=== PATIENT | male | born 1980 | race African-American/Black ===

== ENCOUNTER 2021-12-17 04:03 | Emergency (ER) | payer SELFPAY ==
[2021-12-17 04:39] LABS: #Monocytes 0.8 10x3/uL (0.0-1.1); #Neutrophils 13.3 10x3/uL (1.5-8.4); %Basophils 0.3 % (0.0-2.0); %Eosinophils 0.1 % (0.0-6.0); %Lymphocytes 8.9 % (18.0-47.0); %Monocytes 5.2 % (0.0-10.0); %Neutrophils 85.1 % (40.0-75.0); Hemoglobin 13.1 g/dL (13.5-17.5); Mean Corpuscular HGB CONC 31.3 g/dL (32.0-36.0); Mean Corpuscular Hemoglobin 29.6 pg (27.0-33.0); Mean Corpuscular Volume 94.6 fl (81.2-95.1); Mean Platelet Volume 9.6 fl (7.4-10.4); Platelet Count 333 10x3/uL (150-450); RBC Distribution Width 11.8 % (11.5-14.5); Red Blood Cell (RBC) Count 4.43 10x6/uL (4.32-5.72); White Blood Cell (WBC) Count 15.7 10x3/uL (3.5-10.5)
[2021-12-17 05:04] LABS: ALT (SGPT) 13 U/L (8-55); AST (SGOT) 13 U/L (5-34); Albumin 4.2 g/dL (3.5-5.0); Alkaline Phosphatase 82 U/L (40-110); Anion Gap 17 mmol/L (10-20); BUN (Urea Nitrogen) 17 mg/dL (8.9-20.6); Bilirubin, Total 1.3 mg/dL (0.2-1.2); Calc. Creatinine Clearance 0 mL/min (70-130); Calcium 9.5 mg/dL (7.8-10.44); Carbon Dioxide 27 mmol/L (22-29); Chloride 101 mmol/L (98-107); Glucose 205 mg/dL (70-105); Lipase 10 U/L (8-78); Protein, Total 7.2 g/dL (6.0-8.3); Sodium 141 mmol/L (136-145)
[2021-12-17] MEDS ORDERED: Ondansetron PF 4 MG/2 ML Vial ONE (05:13)
[2021-12-17] MEDS ORDERED: Metoclopramide HCl 10 MG/2 ML VIAL ONE (05:14)
[2021-12-17 05:16] LABS: Bilirubin Neg (Negative); Blood, Urine Negative (Negative); Clarity Clear (Clear); Glucose, Urine (Dipstick) Normal (Negative); Ketone, Urine 150 mg/dL (Negative); Leukocyte 25 (Negative); Nitrite Negative (Negative); Protein, Urine (Dipstick) 30 mg/dl (Neg-Trace)
[2021-12-17 05:28] LABS: Bacteria/HPF 1+ HPF (None Seen); RBC/HPF None Seen HPF (0-3); Squamous Epithelial 0-3 HPF (0-3)
[2021-12-17 05:29] LABS: Mucous/LPF 4+ LPF (<2+)
[2021-12-17] MEDS ORDERED: Morphine 4 MG/ML VIAL ONE (05:33)
[2021-12-17] MEDS ORDERED: cefTRIAXone\\ROCEPHIN 1 GM VIAL ONE (06:18)
[2021-12-17] MEDS ORDERED: Iopamidol 300 61% 100 ML VIAL FS ONE (14:43)
== END 2021-12-17 09:27 | disposition home or self-care (01) ==
LOC: CSHERS 04:03
DX: N39.0 Urinary tract infection, site not specified (principal); R11.2 Nausea with vomiting, unspecified; E11.9 Type 2 diabetes mellitus without complications; I10 Essential (primary) hypertension; E78.5 Hyperlipidemia, unspecified; Z79.4 Long term (current) use of insulin
CPT/HCPCS: 36415; 36416; 74177; 80053; 81003; 81015; 83690; 84484; 85025; 93005; 96361; 96365; 96367; 96375; J0696; J2270; J2405; J2765